=== PATIENT | male | born 1945 | race Caucasian/White ===

== ENCOUNTER → 2024-07-21 | Outpatient (CLI) | payer MEDICARE, SELFPAY ==
--- NOTE | 2024-07-21 16:30 | XR_ITS ---
Examination: Thyroid sonography complete TECHNIQUE: Grayscale sonographic images thyroid lobes with color flow analysis Exam date and time: July 21, 2024 1623 hours Comparison July 16, 2023 INDICATIONS: Thyroid sonogram July 16, 2023 lower pole left thyroid nodule 6 x 5 mm, 15 x 14 mm FINDINGS: Right thyroid 4.8 x 1.5 x 1.7 cm No thyroid nodules Left thyroid 5.4 x 1.7 x 1.6 cm Lower pole solid nodules 9 x 5 x 5 mm, 17 x 14 x 13 millimeters IMPRESSION: Again noted lower pole left thyroid nodules Suggest continued 6 month follow-up thyroid sonography
== END | disposition home or self-care (01) ==
LOC: CDIM 16:15
PROVIDERS: Referring Provider Nurse Practitioner Family; Visit Provider Nurse Practitioner Family
DX: E04.2 Nontoxic multinodular goiter (principal)
CPT/HCPCS: 76536

== ENCOUNTER → 2024-08-11 | Outpatient (CLI) | payer MEDICARE, SELFPAY ==
[2024-08-11 10:15] LABS: Collection Type, Urine Clean Catch; RBC,Urine 0 /hpf (0-3); Squamous Epithelial Cell,Urine 0 /hpf (0-5)
[2024-08-11 10:36] LABS: Basophils # (Auto) 0.1 Thou/mm3 (0.0-0.2); Basophils % (Auto) 1 % (0-2.5); Eosinophils # (Auto) 0.3 Thou/mm3 (0.0-0.5); Eosinophils % (Auto) 4 % (0-10); Hematocrit 46.3 % (41.0-53.0); Hemoglobin 15.4 g/dL (13.5-16.0); Immature Granulocytes % (Auto) 0 % (0-0); Immature Granulocytes Auto 0.03 Thou/mm3 (0.00-0.00); Lymphocytes # (Auto) 1.9 Thou/mm3 (1.0-4.8); Lymphocytes % (Auto) 26 % (10-50); Mean Corpuscular HGB Conc 33.3 g/dl (31.0-37.0); Mean Corpuscular Hemoglobin 30.7 pg (25.0-35.0); Mean Corpuscular Volume 92 fL (80-100); Monocytes # (Auto) 0.6 Thou/mm3 (0.0-0.8); Monocytes % (Auto) 9 % (0-12); Neutrophils # (Auto) 4.4 Thou/mm3 (1.8-7.7); Neutrophils % (Auto) 60 % (37-80); Nucleated Red Blood Cell % 0 /100 WBC (0); Platelet Count 207 Thou/mm3 (140-440); RDW Standard Deviation 43.5 fL (35.1-43.9); Red Blood Count 5.01 Miln/mm3 (4.50-5.90); White Blood Count 7.2 Thou/mm3 (3.8-10.6)
[2024-08-11 10:51] LABS: Prostate Specific Antigen 3.31 ng/mL (0-4.00)
[2024-08-11 10:53] LABS: Alanine Aminotransferase 23 U/L (10-49); Albumin, Serum 4.3 gm/dL (3.4-4.8); Albumin/Globulin Ratio 1.7 (1.2-2.2); Alkaline Phosphatase 58 U/L (46-116); Anion Gap 4 (7-16); Aspartate Amino Transferase 22 U/L (0-34); BUN/Creatinine Ratio 15 Ratio (12-20); Bilirubin,Total 1.1 mg/dL (0.3-1.2); Blood Urea Nitrogen 19 mg/dL (9-23); Calcium 9.6 mg/dL (8.3-10.6); Calcium (Corrected) 9.6 mg/dL (8.5-10.1); Carbon Dioxide 29.5 mMol/L (20.0-31.0); Cardiac Risk Estimate 2.9 RATIO (4.0-6.7); Chloride 106 mMol/L (98-107); Cholesterol 143 mg/dL (132-200); Creatinine (Component) 1.3 mg/dL (0.6-1.3); Free T4 (Free Thyroxine) 1.41 ng/dL (0.89-1.76); Globulin 2.5 gm/dL (2.3-3.5); Glucose 93 mg/dL (74-106); HDL Cholesterol 49 mg/dL (40-60); LDL Cholesterol,Calculated 63 mg/dL (0-130); Osmolality,Calculated 279 (275-295); Potassium 5.3 mMol/L (3.4-5.1); Sodium 139 mMol/L (136-145); Thyroid Stimulating Hormone 1.81 uIU/mL (0.55-4.78); Total Protein 6.8 gm/dL (5.7-8.2); Triglycerides 154 mg/dL (30-150); eGFR 56 See Note
[2024-08-11 10:59] LABS: Bilirubin,Urine Negative (Negative); Blood,Urine Negative (Negative); Clarity,Urine Clear (Clear/Hazy); Color,Urine Lt-Yellow (Lt Yel-Yel); Culture Indicated,Urine Not Indicated; Glucose, Urine Negative (Negative); Ketones,Urine Negative (Negative); Leukocyte Esterase,Urine Negative (Negative); Nitrite,Urine Negative (Negative); Protein,Urine Negative (Neg - Trace); Specific Gravity,Urine 1.011 (1.001-1.035); Urobilinogen,Urine Negative mg/dL (0.0-1.0); WBC,Urine 1 /hpf (0-5)
== END | disposition home or self-care (01) ==
LOC: COPL 09:35
PROVIDERS: PCP Nurse Practitioner Family; Referring Provider Nurse Practitioner Family; Visit Provider Nurse Practitioner Family
DX: Z00.00 Encounter for general adult medical examination without abnormal findings (principal); N40.1 Benign prostatic hyperplasia with lower urinary tract symptoms; N18.30 Chronic kidney disease, stage 3 unspecified; E78.2 Mixed hyperlipidemia
CPT/HCPCS: 36415; 80053; 80061; 81001; 84153; 84439; 84443; 85025

== ENCOUNTER 2024-09-30 07:15 | Day surgery (SDC) | payer MEDICARE, SELFPAY ==
[2024-09-30] VITALS (10 sets, daily range): BP systolic 106–148; BP diastolic 62–85; PULSE 61–79; RESP 11–22; TEMP 36.1–36.6; O2SAT 92–99; BMI 31.5
[2024-09-30] MEDS: DiphenhydrAMINE INJ 50 MG/ML VIAL 25 MG IV (09:28)
[2024-09-30] MEDS: MIDAZOLAM INJ 1 MG/ML VIAL 2 ML (ASD USE ONLY) 2 MG IV (09:30)
[2024-09-30] MEDS: fentaNYL CIT INJ 50 mCg/ML AMP 2ML (ASD USE ONLY) IV (09:30)
[2024-09-30] MEDS: SODIUM CHLORIDE 0.9% 500 ML 500 ML 20 ML IV (09:45)
--- NOTE | 2024-09-30 10:53 | SUR.PHASEII ---
0955: Pt received for recovery. Pt groggy, but awake. Does drift off to sleep and is easily aroused. Resp even, unlabored. VS stable. Abdomen soft. Denies pain. 1018: Pt more awake, alert. VS stable. Resp even, unlabored. Denies pain. Sitting up tolerating po fluids with no difficulty swallowing and no n/v. 1025: Pt fully awake, oriented x3. Pt assisted to restroom. Ambulation steady. 1040: Pt and stated understanding of discharge instructions. Pt discharged from [facility] in stable condition.
== END 2024-09-30 10:40 | disposition home or self-care (01) ==
PROVIDERS: PCP Family Medicine; Referring Provider Specialist; Visit Provider Specialist
PROC: 0DBE8ZX Excision of Large Intestine, Via Natural or Artificial Opening Endoscopic, Diagnostic (ICD-10-PCS; CPT 45380; principal; 2024-09-30 08:30)
DX: Z12.11 Encounter for screening for malignant neoplasm of colon (principal); D12.2 Benign neoplasm of ascending colon; D12.8 Benign neoplasm of rectum; K64.9 Unspecified hemorrhoids; K57.30 Diverticulosis of large intestine without perforation or abscess without bleeding
CPT/HCPCS: 45380; 45385; J1200; J2250; J3010; J7040

== ENCOUNTER → 2025-02-04 | Outpatient (CLI) | payer MEDICARE, SELFPAY ==
--- NOTE | 2025-02-04 14:00 | XR_ITS ---
Examination: Ultrasound soft tissue neck TECHNIQUE: Grayscale sonographic images soft tissue neck INDICATIONS: Palpable lump posterior right side of the neck note is beginning 2 weeks ago Date and time: February 04, 2025 1410 hours FINDINGS: Cystic benign-appearing mass 14 x 12 x 13 mm at the area concern posterior right neck near the base of the skull IMPRESSION: Small benign cystic mass in the soft tissue as above
== END | disposition home or self-care (01) ==
PROVIDERS: PCP Pediatrics; Referring Provider Nurse Practitioner Family; Visit Provider Nurse Practitioner Family
DX: R22.9 Localized swelling, mass and lump, unspecified (principal)
CPT/HCPCS: 76536

== ENCOUNTER 2025-06-10 09:45 | Day surgery (SDC) | payer MEDICARE, SELFPAY ==
--- NOTE | 2025-06-09 07:00 | EKG_ITS ---
[facility], [place] Test Date: 2025-06-09 Pat Name: JHON FLORES Department: Room: - Gender: Male Library Circulation Technician: YOHANNESAnant : [id number] Requested By: Marissa Beal Order Number: [id number] Reading MD: Marissa Beal Measurements Intervals [place] Rate: 55 P: 40 PA: 177 QRS: -16 QRSD: 138 T: 33 QT: 462 QTc: 446 Interpretive Statements SINUS BRADYCARDIA WITH OCCASIONAL SUPRAVENTRICULAR PREMATURE COMPLEXES RIGHT BUNDLE BRANCH BLOCK [120+ ms QRS DURATION, UPRIGHT V1, 40+ ms S IN I/aVL/V4/V5/V6] Compared to ECG 07/01/2012 12:03:10 Sinus rhythm no longer present Sinus arrhythmia no longer present Left anterior fascicular block no longer present /store/S0/[id number]/[id number].pdf
[2025-06-09 07:47] VITALS: BMI 32.8
[2025-06-09 08:24] LABS: Basophils # (Auto) 0.0 Thou/mm3 (0.0-0.2); Basophils % (Auto) 1 % (0-2.5); Eosinophils # (Auto) 0.4 Thou/mm3 (0.0-0.5); Eosinophils % (Auto) 5 % (0-10); Hematocrit 44.3 % (41.0-53.0); Hemoglobin 14.8 g/dL (13.5-16.0); Immature Granulocytes Auto 0.03 Thou/mm3 (0.00-0.00); Lymphocytes # (Auto) 1.9 Thou/mm3 (1.0-4.8); Lymphocytes % (Auto) 24 % (10-50); Mean Corpuscular HGB Conc 33.4 g/dl (31.0-37.0); Mean Corpuscular Hemoglobin 30.8 pg (25.0-35.0); Mean Corpuscular Volume 92 fL (80-100); Monocytes # (Auto) 0.7 Thou/mm3 (0.0-0.8); Monocytes % (Auto) 9 % (0-12); Neutrophils # (Auto) 4.9 Thou/mm3 (1.8-7.7); Neutrophils % (Auto) 62 % (37-80); Nucleated Red Blood Cell # 0.00 Thou/mm3 (0.00-0.00); Nucleated Red Blood Cell % 0 /100 WBC (0); Platelet Count 236 Thou/mm3 (140-440); RDW Standard Deviation 43.1 fL (35.1-43.9); Red Blood Count 4.81 Miln/mm3 (4.50-5.90); White Blood Count 7.9 Thou/mm3 (3.8-10.6)
[2025-06-09 08:47] LABS: Alanine Aminotransferase 16 U/L (10-49); Albumin, Serum 4.3 gm/dL (3.4-4.8); Albumin/Globulin Ratio 1.4 (1.2-2.2); Alkaline Phosphatase 58 U/L (46-116); Anion Gap 8 (7-16); Aspartate Amino Transferase 18 U/L (0-34); BUN/Creatinine Ratio 11 Ratio (12-20); Bilirubin,Total 0.7 mg/dL (0.3-1.2); Blood Urea Nitrogen 16 mg/dL (9-23); Calcium 8.7 mg/dL (8.3-10.6); Calcium (Corrected) 8.7 mg/dL (8.5-10.1); Carbon Dioxide 27.9 mMol/L (20.0-31.0); Chloride 106 mMol/L (98-107); Creatinine (Component) 1.4 mg/dL (0.6-1.3); Estimated Creatinine Clearance 52.3 mL/min (>60); Globulin 3.1 gm/dL (2.3-3.5); Glucose 110 mg/dL (74-106); Osmolality,Calculated 285 (275-295); Potassium 4.6 mMol/L (3.4-5.1); Sodium 142 mMol/L (136-145); Total Protein 7.4 gm/dL (5.7-8.2); eGFR 51 See Note
--- NOTE | 2025-06-09 15:04 | SUR.PREOP ---
Cardiac records requested from Dr Cortez's office, waiting ......
[2025-06-10] VITALS (7 sets, daily range): BP systolic 128–149; BP diastolic 69–85; PULSE 68–89; RESP 12–20; TEMP 36.2–36.9; O2SAT 94–100; BMI 32.5
--- NOTE | 2025-06-10 12:31 | SUR.PHASEI ---
pt arrived to PACU via gurney obtunded, breathing unlabored, dressing to posterior neck clean, dry, and intact, report from Ese NOVAK and Cristina BENDING PRESS OPERATOR
--- NOTE | 2025-06-10 12:37 | PD.SUROPNT ---
Date of Procedure 06/10/25 Pre Op Diagnosis Posterior right neck mass Post Op Diagnosis Posterior right neck mass Procedure Excision of deep posterior right neck mass Findings 3 cm firm mass invading the underlying muscle of the posterior right neck Procedure Description Patient brought into the operating room supine position. After administration of general endotracheal anesthesia, patient was placed in left lateral decubitus position. His posterior right neck was prepped and draped in standard surgical manner. After administration of local anesthesia 4 cm elliptical incision was made and dissection was deepened into soft tissue. The mass was deep into the soft tissue and invading the fascia and underlying muscle. The mass was circumferentially dissected off surrounding tissue and from underlying fascia and muscle. The wound was washed and irrigated and hemostasis achieved using electrocautery. Fascia reapproximated with interrupted sutures using 2-0 Vicryl. Subcutaneous tissue closed with interrupted sutures using 3-0 Vicryl and the incision was closed with 4-0 Monocryl in subcuticular fashion. Dermabond and sterile pressure dressings applied. Patient tolerated procedure well. He was placed in supine position and extubated. He was breathing spontaneously without difficulty and was transferred to postanesthesia care in stable condition. Instruments, needles and sponge counts were reported to be correct x 2. Anesthesia GETA and local Pathology / specimen Other (Posterior right neck mass) Estimated Blood Loss 5 Condition Stable Disposition PACU Surgeon Marissa Beal MD Surgical Staff Operation Date: 06/10/25 12:00 Case Staff SPUN PASTE MACHINE OPERATOR: Cristina Miller
--- NOTE | 2025-06-10 12:57 | SUR.PHASEI ---
pt tolerating ice chips without difficulty swallowing or n/v
--- NOTE | 2025-06-10 13:01 | SUR.PHASEII ---
report to Raul NOVAK
--- NOTE | 2025-06-10 13:29 | SUR.PHASEII ---
pt awake and alert, breathing unlabored on room air. v/s stable. pt dressing to back of neck cdi. pt able to ambulate to wheelchair with steady gait. d/c instructions given with Julianna in room, all questions answered. pt d/c via wheelchair with all belongings.
== END 2025-06-10 13:29 | disposition home or self-care (01) ==
PROVIDERS: Anesthesiology; PCP Family Medicine; Referring Provider Surgery; Visit Provider Surgery
PROC: (CPT 21552; principal; 2025-06-10 11:45)
DX: C76.0 Malignant neoplasm of head, face and neck (principal); Z01.810 Encounter for preprocedural cardiovascular examination
CPT/HCPCS: 21552; 36415; 80053; 85025; 93005; A4649; J0690; J1100; J2405; J2704; J3010; J3490